=== PATIENT | male | born 1955 | race Caucasian/White ===

== ENCOUNTER → 2016-10-24 | Outpatient (CLI) | payer OTHER ==
[~2016-10-24] MED LIST: ALLOPURINOL100 M1 PO; ASPIRIN FOR CHI81 MG PO; CENTRUM1 TA1 PO; FISH OIL CONC1000 MG PO; LISINOPRIL 10MG10 MG PO; LORTAB 500 MG-71 TAB PO; OMEGA-3 KRILL O1 SGL PO; VITAMIN C500 M4 PO
--- NOTE | 2016-10-24 11:01 | RADIOLOGY REPORT PS360 ---
EXAM: LUMBAR SPINE 5 VIEWS HISTORY: RT HIP AND LEG PAIN ORDERING PHYSICIAN: Jason Adams MD PATIENT AGE: 61 years COMPARISON: None FINDINGS: Normal alignment. No fracture or dislocation. No lytic or blastic change. Moderate degenerative disc disease is present at L5-S1 with endplate osteophytes and decrease in the disc space. There is degenerative disc disease in the lower thoracic spine as well. Small osteophytes are present involving the lumbar spine with prominent left lateral osteophytes at L2-L3. There are facet arthritic changes at L4-L5 and L5-S1. Right nephrolithiasis. IMPRESSION: 1. 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 2. Right nephrolithiasis
--- NOTE | 2016-10-24 11:03 | RADIOLOGY REPORT PS360 ---
HIP RT 2-3V W/PELVIS IF PERFOR HISTORY: RT HIP AND LEG PAIN ORDERING PHYSICIAN: Jason Adams MD PATIENT AGE: 61 years COMPARISON: None FINDINGS: No fracture or dislocation. No lytic or blastic change. Minimal osteoarthritic changes involving the right hip. 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 Calcification is present along the lateral aspect of the ischial tuberosity and may be related to an old avulsion injury. IMPRESSION: 1. Minimal osteoarthritic change of the right hip. 2. Suspect old avulsion injury at the ischial tuberosity
== END ==
LOC: RAD 09:02
DX: M54.16 Radiculopathy, lumbar region (principal); M25.551 Pain in right hip; M79.604 Pain in right leg

== ENCOUNTER → 2017-02-22 | Emergency (ER) | payer OTHER, BC ==
[~2017-02-22] VITALS: Ht 185.4 cm; Wt 112.9 kg
[~2017-02-22] MED LIST changes: +SYNTHROID 0.0.075 MG PO
[2017-02-22 21:12] LABS: HEMOGLOBIN 14.9 g/dL (14.1-18.0); LYMPH # 3.1 K/mm3 (0.7-4.5); LYMPH % 33.2 % (10-50)
--- OUTSIDE RECORDS SUMMARY | 2017-02-22 21:12 | External Medical Summary Rpt | CCD ---
Author Author , YARITZA VIGIL Address Unknown Phone [email or web address] Care Team Providers Care Kieselguhr Regenerator Operator Name Role Phone Julian Salinas MD, Julian Ta MD Purpose Continuity of Care Document - 09-09-2012 through 2016 Problems Code Diagnosis DOS Provider Status 246.2 246.2 CYST 09-10-2012 Glendo OF [facility] 401.9 401.9 09-10-2012 Glendo HYPERTENSIO [facility] 413.9 413.9 09-10-2012 Glendo ANGINA [facility] NEC/NOS 786.59 786.59 09-10-2012 Glendo CHEST PAIN [facility] Allergies, Adverse Reactions, Alerts Type Allergy to substance Adverse Reaction to Substance Substance Reaction Severity INGREDIENT: NO KNOWN Unknown Unknown - NO KNOWN DRUG ALLERGY Medications Na ND Rx Da Fi Fi Am Da Di Ph RX Ph St me C No te ll ll ou ys ag ar # ys at rm s nt no ma ic us Or Da si cy ia de te s n re d AL 51 05 0 No LO 07 -1 PU 90 3- Lo RI 20 20 ng NO 52 13 er L 0 10 Ac 0 ti MG ve TA BL ET 63 05 0 No PI 73 -1 RI 90 3- Lo N 43 20 ng 81 40 13 er 1 MG Ac ti CH ve EW AB LE TA BL ET Li 00 05 0 No si 17 -1 no 23 3- Lo pr 75 20 ng il 91 13 er 0 10 Ac MG ti ve Ta bl et Sa 63 05 1 No li 80 -1 ne 70 2- Lo 10 20 ng Fl 07 13 er us 5 h Ac 10 ti ML ve Sy ri ng e As 51 05 0 No pi 07 -1 ri 90 2- Lo n 00 20 ng 32 52 13 er 5M 0 G Ac Ta ti bl ve et NI 59 05 0 No TR 63 -1 OG 00 2- Lo LY 30 20 ng CE 06 13 er RI 5 N Ac 0. ti 4M ve G/ DO SE SP RA Y LO 00 05 1 No VE 07 -1 NO 50 2- Lo X 62 20 ng 40 04 13 er 1 MG Ac /0 ti .4 ve ML SY RI NG E Vital Signs 09-10-2012 16:45 Name Value Interpretat Reference Comment ion Range Body 98.4 [degF] Temperature BP 53 mm[Hg] Diastolic BP Systolic 120 mm[Hg] Heart 70 /min Rate/Pulse Respiratory 20 /min Rate 09-10-2012 15:58 Name Value Interpretat Reference Comment ion Range O2% 99 % 09-09-2012 12:11 Name Value Interpretat Reference Comment ion Range Height 185.42 cm Weight 105.263 kg Measured 09-09-2012 10:07 Name Value Interpretat Reference Comment ion Range Body 98.2 [degF] Temperature BP 109 mm[Hg] Diastolic BP Systolic 154 mm[Hg] Heart 90 /min Rate/Pulse O2% 98 % Respiratory 20 /min Rate Weight 0 [oz_av] Measured Results Labs Lab Lab Date Result Refere Interp Status Commen Order Detail nces retati t Range on Glucose Bld-mCnc (09-10-2012 12:05) Glucose 90 74-106 complet 013 mg/dL ed Bld-mCn 12:05 c LIPID PROFILE (09-10-2012 06:23) Cholest 161 Less complet 013 mg/dL than ed SerPl-m 06:23 200 Cnc HDLc 46.0 40-60 complet SerPl-m 013 MG/DL ed Cnc 06:23 LDLc 72.8 0-130 complet SerPl 013 mg/dL ed Calc-mC 06:23 nc VLDL 42.2 0-40 complet CHOLEST 013 UNK ed GABRIELA 06:23 Trigl 211 30-200 complet SerPl-m 013 mg/dL ed Cnc 06:23 COMPREHENSIVE METABOLIC PANEL (09-09-2012 10:20) Glucose 196 74-106 complet 013 mg/dL ed Bld-mCn 10:20 c BUN 19 7-18 complet Bld-mCn 013 mg/dL ed c 10:20 Creat 05-12-2 1.2 0.8-1.3 complet SerPl-m 013 mg/dL ed Cnc 10:20 ESTIMAT 09-09-2 Greater 50-200 complet ED 013 than ed CREATIN 10:20 300 INE ML/MIN CLEARAN CE GFR 2 62 Greater complet (ESTIMA 013 ML/MIN than ed KATHERYN) 10:20 60 Sodium 09-09- 137 136-145 complet SerPl-s 013 mmoL/L ed Cnc 10:20 Potassi 2 4.0 3.5-5.1 complet um 013 mmoL/L ed SerPl-s 10:20 Cnc Chlorid 100 98-107 complet e 013 mmoL/L ed SerPl-s 10:20 Cnc CO2 09-09- 30 21.0-32 complet SerPl-s 013 mmoL/L .0 ed Cnc 10:20 Calcium 09-09- 8.9 8.5-10. complet 013 mg/dL 1 ed SerPl-m 10:20 Cnc Prot 09-09-2 8.1 6.4-8.2 complet SerPl-m 013 gm/dL ed Cnc 10:20 Albumin 09-09-2 4.3 3.4-5.0 complet 013 gm/dL ed SerPl-m 10:20 Cnc Globuli 09-09-2 3.8 1.3-3.2 complet n 013 gm/dL ed Ser-mCn 10:20 c Albumin 09-09- 1.1 UNK 1.1-1.8 complet /Glob 013 ed SerPl-m 10:20 Rto Bilirub 2 0.3 0.2-1.0 complet 013 mg/dL ed SerPl-m 10:20 Cnc AST 09-09-2 20 U/L 15-37 complet SerPl-c 013 ed Cnc 10:20 ALT 09-09-2 51 U/L 30-65 complet SerPl-c 013 ed Cnc 10:20 ALP -12-2 141 U/L 50-136 complet SerPl-c 013 ed Cnc 10:20 CBC with AUTO DIFF (09-09-2012 10:20) WBC # 05-12-2 6.4 4.8-10. complet Bld 013 K/MM3 8 ed Auto 10:20 RBC # 05-12-2 5.35 4.6-6.2 complet Bld 013 M/mm3 ed Auto 10:20 Hgb 05-12-2 15.6 14.1-18 complet Bld-mCn 013 g/dL .0 ed c 10:20 Hct Fr 05-12-2 48.8 % 42.0-52 complet Bld 013 .0 ed 10:20 MCV RBC 05-12-2 91.2 fl 82.2-97 complet 013 .8 ed 10:20 MCH RBC 05-12-2 29.2 pg 27-31.2 complet Qn 013 ed Auto 10:20 MEAN 05-12-2 32.0 31.8-35 complet CORPUSC 013 g/dl .4 ed ULAR 10:20 HGB CONC RDW RBC 05-12-2 13.3 % 11.5-17 complet Auto 013 .5 ed 10:20 Platele 05-12-2 353 142-424 complet t Bld 013 K/mm3 ed Ql 10:20 Manual MEAN 05-12-2 7.0 fl 7.4-10. complet PLATELE 013 4 ed T 10:20 VOLUME Granulo 05-12-2 58.1 % 37.0-80 complet cytes 013 .0 ed Fr Bld 10:20 Auto LYMPH % 05-12-2 33.5 % 10-50 complet 013 ed 10:20 Monocyt 05-12-2 5.4 % 1.7-9.3 complet es Fr 013 ed Bld 10:20 Auto Eosinop 05-12-2 1.8 % 0.1-12. complet hil Fr 013 0 ed Bld 10:20 Auto Basophi 05-12-2 1.1 % 0.1-2.0 complet ls Fr 013 ed Bld 10:20 Auto Granulo 05-12-2 3.7 1.3-8.0 complet cytes # 013 K/mm3 ed Bld 10:20 Auto Lymphoc 05-12-2 2.1 0.7-4.5 complet ytes Fr 013 K/mm3 ed Bld 10:20 Auto Monocyt 05-12-2 0.4 0.1-1.0 complet es # 013 K/mm3 ed Bld 10:20 Auto Eosinop 05-12-2 0.1 0.0-0.4 complet hil # 013 K/mm3 ed Bld 10:20 Auto Basophi 05-12-2 0.1 0-0.2 complet ls # 013 K/MM3 ed Bld 10:20 Auto GLYCOHEMOGLOBIN (A1c) (09-09-2012 10:20) HEMOGLO 5.9 % 0.0-7.0 complet BIN A1C 013 ed 10:20 Encounters Encounter Start End Date Code Location Performer Type Date Inpatient BERTA Ta ([place]) 3 10:25 3 16:45 [facility] Matt
--- OUTSIDE RECORDS SUMMARY | 2017-02-22 21:12 | External Medical Summary Rpt | CCD ---
Author Author , YARITZA VIGIL Address Unknown Phone [email or web address] Team Providers Care Area Sales Manager Name Role Phone Julian Salinas MD, Julian Ta MD Purpose Continuity of Care Document - 09-09-2012 through 2016 Problems Code Diagnosis DOS Provider Status 246.2 246.2 CYST 09-10-2012 Vanderwagen OF [facility] 401.9 401.9 09-10-2012 Vanderwagen HYPERTENSIO [facility] 413.9 413.9 09-10-2012 Vanderwagen ANGINA [facility] NEC/NOS 786.59 786.59 09-10-2012 Vanderwagen CHEST PAIN [facility] Allergies, Adverse Reactions, Alerts Type Allergy to [...] BERTA Ta ([place]) 3 10:25 3 16:45 [facility] Matt
--- OUTSIDE RECORDS SUMMARY | 2017-02-22 21:12 | External Medical Summary Rpt | CCD ---
Author Author [employer] Organization [employer] Address Unknown Phone Unavailable Purpose Continuity of Care Document - through 2016
--- OUTSIDE RECORDS SUMMARY | 2017-02-22 21:13 | External Medical Summary Rpt | CCD ---
Demographics Preferred Language Luxembourgish Marital Status Unknown Zoroastrianism Affiliation Unknown Race Unknown Ethnic Group Unknown Author Author , HENOK VIGIL Address Unknown Phone Immunization Unable to retrieve immunization data due to connection failure with Immunization Registry. Please try again later.
--- OUTSIDE RECORDS SUMMARY | 2017-02-22 21:13 | External Medical Summary Rpt | CCD ---
Demographics Preferred Language Bulgarian Marital Status Unknown Restoration Affiliation Unknown Race Unknown Ethnic Group Unknown Author Author , HENOK VIGIL Address Unknown Phone Immunization Unable to retrieve immunization data due to connection failure with Immunization Registry. Please try again later.
--- OUTSIDE RECORDS SUMMARY | 2017-02-22 21:13 | External Medical Summary Rpt ---
Author Author YARITZA Echevarria, YARITZA Echevarria Organization [employer] Address Unknown Phone Unavailable
[2017-02-22 21:53] LABS: URINE BILIRUBIN - DIPSTICK NEGATIVE (NEG); URINE BLOOD 2+ (NEG)
[2017-02-22 22:05] LABS: URINE SQUAMOUS CELLS OCC #/hpf (OCC)
[2017-02-22 23:33] VITALS: BP 119/81
--- NOTE | 2017-02-22 23:41 | Emergency Room Report ---
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 N Clinical Suspician of Infection? N Mental Status: 1 - Regular (Normal Baseline) Sepsis Risk:Low Sepsis Risk Have you (or family members/close friends) recently traveled outside the [place]? N If Yes, where/when: Have you had exposure to infectious disease within the past month? N TB? Other? Specify: Source patient, RN notes reviewed, family, RN/MD Exam Limitations no limitations Comment This is a 62-year-old male patient arriving to the emergency room with RIGHT flank pain radiating to the RIGHT lower quadrant abdomen, since last night , gradually worse. Patient complains of nausea, declines vomiting. He has a history of previous kidney stones, requiring stenting, approximately 4 years ago (by Dr. Nava). Patient denies any recent travel or exposure to sick contacts. ALLERGIES Coded Allergies: No Known Allergies (05/25/15) Home Medications Reported Medications Nutriceutical3 ([place]-3 Krill Oil) 1 SGL PO DAILY LISINOPRIL (Lisinopril) 10 MG PO DAILY ALLOPURINOL (Allopurinol 100MG) 100 MG PO DAILY Aspirin 81 MG PO DAILY Fish Oil (Fish Oil Concentrate) 1,000 MG PO DAILY Multivitamin And Minerals2 (Centrum) 1 TAB PO DAILY Ascorbic Acid (Vitamin C) 1,000 MG PO DAILY Levothyroxine Sodium (Synthroid 0.075MG) 0.075 MG PO DAILY History Medical History General CAD? No Angina: Yes NC: Yes Hypertension? Yes Hyperlipidemia? Yes CHF? No DVT? No PE? No COPD? No Asthma? No Anemia? No GERD? No Gastric ulcers? No GI Bleed? No Hernia? No Thyroid Problems? Yes Hypothyroidism? No CVA? No Seizures? No Diabetes? No Renal Insuffiency? No End Stage Renal Disease? No UTI? No Stones? Yes BPH? Yes GB Disease: No Nephritic Syndrome? No Asplenia? No Hepatitis? Yes Sickle Cell Disease? No Arthritis? Yes Migraines? No Cataracts? No Glaucoma? No MRSA? No HIV? No TB? No Anxiety? No Depression? No Cancer? No More? No Immunization Hx DT/Tetanus 1-4 YRS Flu NEVER Pneumonia REFUSES Surgical Hx Previous Surgery?Y R ANKLE KIDNEY STONE REMOVAL KIDNEY STENT CARDIAC CATH KIDNEY STENT REMOVED RIGHT ROTATOR CUFF RIGHT MENISCUS Family History Family Hx Diabetes No CAD Yes Hypertension Yes Hyperlipidemia No Cancer No TB No Social History Smoking Hx Smoker: Former Smoker Tobacco: No Packs/day N/A Alcohol Alcohol: Yes Review of Systems All Other Systems Reviewed and Negative Gastrointestinal abdominal pain, denies constipation, denies diarrhea, nausea, denies vomiting Genitourinary pain (RIGHT flank pain). Physical Exam Vital Signs Vital Signs Date Time Temp Pulse Resp B/P Pulse O2 O2 Flow FiO2 Ox Delivery Rate 02/22 2333 74 18 119/81 97 02/22 2329 74 18 119/81 97 02/226 18 02/22 2113 86 20 120/71 100 02/23 2112 20 02/225 84 18 150/65 100 General Appearance normal appearance, WD/WN, moderate distress Respiratory Status Yes: trachea midline, chest symmetrical, non tender chest. No: respiratory distress. Lung Sounds bilateral: normal breath sounds, lungs clear. Cardiovascular normal exam, regular rate/rhythm, no peripheral edema, no gallop, no JVD, no murmur, no rub, normal peripheral pulses Gastrointestinal normal bowel sounds, soft, no organomegaly, tenderness (RLQ) Back normal inspection, no vertebral tenderness, gait normal, CVA tenderness (R) Extremities non-tender, normal range of motion, normal inspection Neurologic alert, registered nurse first assistant II-XII nml as tested, normal exam, oriented x 3 Mental status normal mood/affect Skin intact, normal color, warm/dry Medical Decision Making LABS/Meds/Orders Pt receiving controlled substance in ED? No Comment 22:30-case d/w Barbie Luevano, advised of the patient's presentation and findings, agreeable to accept patient as a transfer, tonight. Patient appears in stable medical condition, will drive him to [facility] upon discharge from this emergency room. Results/Orders Laboratory Tests 02/22/172138: Urine Color YELLOW, Urine Appearance SL CLOUDY, Urine pH 6.0, Ur Specific [place] 1.025, Urine Protein NEGATIVE, Urine Ketones NEGATIVE, Urine Blood 2+ H , Urine Nitrate NEGATIVE, Urine Bilirubin NEGATIVE, Urine Urobilinogen 0.2, Ur Leukocyte Esterase NEGATIVE, Urine RBC 50-100, Urine WBC NONE, Ur Squamous Epith Cells OCC, Urine Bacteria 1+, Urine Glucose NEGATIVE 02/22/172054: Sodium 141, Potassium 4.5, Chloride 104, Carbon Dioxide 27, BUN 24 H, Creatinine 1.3, Estimated Creat Clear 93, Estimated GFR (MDRD) 56, Glucose 195 H, Calcium 9.2, Total Bilirubin 0.3, AST 23, ALT 41, Alkaline Phosphatase 120 H , Total Protein 7.8, Albumin 4.3, Globulin 3.5 H, Albumin/Globulin Ratio 1.2, WBC 9.3, RBC 4.76, Hgb 14.9, Hct 44.2, MCV 92.9, RDW 12.3, Plt Count 283, MPV 7.4, Gran % 57.0, Gran # 5.3, Lymphocytes % 33.2, Monocytes % 6.4, Eosinophils % 2.2, Basophils % 1.1, Lymphocytes # 3.1, Monocytes # 0.6, Eosinophils # 0.2, Basophils # 0.1, PUBS MCHC 33.8, MCH 31.4 H Current Medication Orders Sig/Jaspal Start time Last Medication Dose Route Stop Time Status Admin Morphine Sulfate 0 .STK-MED ONE 02/22 2249 DC .ROUTE Ondansetron HCl 0 .STK-MED ONE 02/22 2249 DC .ROUTE Sodium Chloride 1,000 ML .STK-MED ONE 02/23 2248 DC IV Morphine Sulfate 6 MG ONCE ONE 02/22 2245 DC 02/22 IV 02/22 Ondansetron HCl 4 MG ONCE ONE 02/22 2245 DC 02/22 IV 02/22 Sodium Chloride 1,000 ML .Q1H1M 02/22 2245 DC 02/22 IV 02/22 Sodium Chloride 10 ML PRN PRN 02/22 2245 AC IV 02/23 2241 Ketorolac 30 MG ONCE ONE 02/22 2115 DC 02/22 Tromethamine IV 02/22 Ondansetron HCl 4 MG ONCE ONE 02/22 2115 DC 02/22 IV 02/22 Sodium Chloride 1,000 ML .Q1H1M 02/22 2115 DC 02/22 IV 02/22 Sodium Chloride 10 ML PRN PRN 02/22 2115 AC IV 02/23 2106 Sodium Chloride 10 ML PRN PRN 02/22 2115 AC IV 02/23 2107 Sodium Chloride 1,000 ML .STK-MED ONE 02/22 2046 DC IV Ketorolac 0 .STK-MED ONE 02/22 2045 DC Tromethamine .ROUTE Ondansetron HCl 0 .STK-MED ONE 02/22 2045 DC .ROUTE Orders Procedure Date/time Status DIET-NOTHING BY MOUTH 02/[address] ABD & PELVIS W/O CONTRAST 02/[address] ABD/PELVIS REQ 02/22 2107 Complete IV SALINE LOCK 02/22 2107 Active URINALYSIS/COMPLETE 02/22 2107 Complete CBC WITH AUTO DIFF 02/22 2107 Complete CHEM 12 PROFILE 02/22 2107 Complete XRAY/CT/US XRAY/CT/US CT abdomen, pelvis (noncontrast) CT interpretation by discussed w/radiologist CT Results see virtual radiology report, consistent with 10 mm RIGHT proximal ureter calculus, with hydronephrosis Departure Departure Time of Disposition 2335 Disposition DC/XFER from ER to [facility] Clinical Impression Primary Impression: Ureterolithiasis Secondary Impressions: Hematuria Qualifiers: Hematuria type: gross Qualified Code: R31.0 - Gross hematuria Hydronephrosis Qualifiers: Hydronephrosis type: with ureteral calculous obstruction Qualified Code: N13.2 - Hydronephrosis with renal and ureteral calculous obstruction Condition STABLE Referrals Brandy MOSQUEDA,Kevin Yin Patient Instructions DI for Kidney Stones Additional Instructions Please go straight to [facility], to be admitted to Dr Nava' service, upon duscharge from this ER. Discharge Counseling Counseled pt/family regarding diagnosis, test results, medications/RX, home care, follow up needs Comment Please go straight to [facility], to be admitted to Dr Kirkland service, upon duscharge from this ER. ED Critical Care Critical Care No at 0520
--- NOTE | 2017-02-23 06:31 | RADIOLOGY REPORT PS360 ---
CT ABD PELVIS W/O CONTRAST CLINICAL INDICATION: Right flank pain RT FLANK PAIN ORDERING PHYSICIAN: Hero Penn MD PATIENT AGE: 62 years COMPARISON: 06/25/2013 TECHNIQUE: Axial images obtained with sagittal and coronal reformats. PROCEDURE: Oral Contrast: None IV Contrast: None . FINDINGS: Lower thorax: Coronary artery calcifications are present. Minor atelectatic changes. ABDOMEN: Liver: Hepatic steatosis Gallbladder: Contracted gallbladder with mild thickening of the wall. No radio opaque stones. Pancreas: No masses or peripancreatic fluid collections. Spleen: Unremarkable. Adrenals: Unremarkable Kidneys/ureters: There is a nonobstructing 9 mm stone in the proximal to mid right ureter at the L3 level. This is causing moderate right hydronephrosis. In addition, there is a 2 mm punctate stone in the lower pole the right kidney and multiple left renal calculi measuring up to 4 mm in the lower pole. No left renal obstruction or left ureteral calculi. Stomach bowel: Nondistended. No obvious mass or thickening. Colonic diverticulosis. No evidence of diverticulitis Appendix: No evidence of appendicitis. PELVIS: Reproductive: Unremarkable Bladder: Nondistended. No obvious stones or masses. ABDOMEN & PELVIS: Peritoneum: No abnormal fluid collections. No obvious inflammatory changes. No free air. Lymph nodes: No enlarged lymph nodes apparent. Vasculature: No evidence of abdominal aortic aneurysm. No retroperitoneal hemorrhage evident. Bones: No acute fracture. Abdominal wall: Small bilateral inguinal hernias containing fat IMPRESSION: 1. 10 mm right proximal to mid ureteral stone with moderate obstructive uropathy 2. Bilateral nephrolithiasis. 3. Coronary artery disease
== END ==
LOC: ER 20:26
PROVIDERS: Emergency Medicine
DX: N13.2 Hydronephrosis with renal and ureteral calculous obstruction (principal); E78.5 Hyperlipidemia, unspecified; Z87.891 Personal history of nicotine dependence; I10 Essential (primary) hypertension; Z79.82 Long term (current) use of aspirin
CPT/HCPCS: J2405